=== PATIENT | female | born 1960 | race American Indian/Alaskan Native ===

== ENCOUNTER 2016-12-03 15:55 | Emergency (ER) | payer BC, OTHER ==
[~2016-12-03] VITALS: Ht 152.4 cm; Wt 90.7 kg
[2016-12-03] MEDS ORDERED: LISINOPRIL20 MG PO (16:10)
[2016-12-03] MEDS ORDERED: LANTUS SOL100 UNIT/1 SUB-Q (16:11)
[2016-12-03] MEDS ORDERED: NOVOLOG FL100 UNIT/1 SUB-Q (16:11)
[2016-12-03] MEDS ORDERED: DOXYCYCLINE HY100 MG PO (16:31)
== END 2016-12-03 16:45 | disposition home or self-care (01) ==
LOC: ED 15:55
DX: S81.811A Laceration without foreign body, right lower leg, initial encounter (principal); E11.9 Type 2 diabetes mellitus without complications; I10 Essential (primary) hypertension; W26.8XXA Contact with other sharp object(s), not elsewhere classified, initial encounter; Z90.49 Acquired absence of other specified parts of digestive tract; Z79.899 Other long term (current) drug therapy; Z79.4 Long term (current) use of insulin
CPT/HCPCS: 99283

== ENCOUNTER 2019-05-26 15:51 | Emergency (ER) | payer BC, OTHER ==
[~2019-05-26] VITALS: Ht 152.4 cm; Wt 90.7 kg
[~2019-05-26 15:51] MED LIST: DOXYCYCLINE HY100 MG PO; LANTUS SOL100 UNIT/1 SUB-Q; LISINOPRIL20 MG PO; NOVOLOG FL100 UNIT/1 SUB-Q
== END 2019-05-26 17:07 | disposition home or self-care (01) ==
LOC: ED 15:51
DX: M25.562 Pain in left knee (principal); E11.9 Type 2 diabetes mellitus without complications; Z79.899 Other long term (current) drug therapy
CPT/HCPCS: 73560; 85379; 99283-25

== ENCOUNTER 2019-09-25 07:05 | Day surgery (SDC) | payer BC, OTHER ==
[~2019-09-25] VITALS: Ht 152.4 cm; Wt 90.7 kg
--- NOTE | 2019-09-25 08:24 | NUR ---
PT IS ALERT, ORIENTED AND SITTING UP IN BED. HAD JUST A MOMENT WITH PT, GAVE GRETING AND INTRO, DR COLINDRES CAME IN AND OR STAFF WAITING IN [place]. EXTENDED A BLESSING
[2019-09-25] MEDS ORDERED: HYDROCODON-ACE1 EA11 PO (09:09)
[2019-09-25] MEDS ORDERED: DICLOFENAC SODI75 MG PO (09:09)
--- NOTE | 2019-09-25 09:21 | NUR ---
09/25/19 0921 Ashley Meyer 0881 PT ARRIVED IN PACU NON RESPONSIIVE TO NOXIOUS STIMULI WITH OPA IN PLACE. 0900 BLOOD SUGAR 131 ON ARRIVAL. 0911 PT RESPONSIVE. OPA REMOVED. L KNEE ELEVATED AND ICE PACK PLACED. 919 PT VISITING WITH RN. NO C/O'S.
--- NOTE | 2019-09-25 09:51 | OR ---
[facility] [address] [place], [place] [address] Signed DATE OF OPERATION: 09/25/2019 SURGEON: Troin Shook MD PREOPERATIVE DIAGNOSIS: Medial meniscus tear, left knee. POSTOPERATIVE DIAGNOSIS: Medial meniscus tear, left knee. PROCEDURE PERFORMED: Left knee arthroscopy with partial medial meniscectomy. PRINTER FLOOR COVERING ASSISTANT: None. ANESTHESIA: General. BLOOD LOSS: Minimal. BRIEF HISTORY: Aparna is a 59-year-old female with pain and locking in her knee. MRI is consistent with a large posteromedial meniscus tear. Risks and benefits of operative treatment were discussed with her and she elected to proceed. DESCRIPTION OF PROCEDURE: Once consent was obtained, she was taken to the operating room. After adequate anesthesia, she was placed on the operating room table. The left leg was placed in well-padded leg arriaza. The right was placed in well-padded leg arriaza with a flexed abducted position. The portal sites were preinjected with 0.25% Marcaine under an alcohol prep. The leg was then prepped and draped in a standard sterile fashion. Standard inferolateral and superolateral portals were made and the scope was introduced in the knee. ARTHROSCOPIC FINDINGS: There was significant synovitis throughout the superior and medial aspects of the knee. The patella showed minimal chondromalacia and tracked well. Medial and lateral gutters were clear. ACL and PCL were intact. Lateral compartment was intact. Medial Electronically Signed By: TORIN SHOOK MD 09/25/19 0951 PATIENT NAME: APARNA ASHER OPERATIVE REPORT DATE OF : 62 REPORT #: [id number] PHYSICIAN: TORIN SHOOK MD PCP: FERN GOLDMAN REPORT IS CONFIDENTIAL AND NOT TO BE RELEASED WITHOUT AUTHORIZATION [facility] [address] [place], [place] [address] Signed compartment showed diffuse grade 2 to grade 3 chondromalacia on the medial aspect of the medial femoral condyle. The meniscus showed a complex tear extending from the posterior root around to the mid body. There were several unstable flaps. DESCRIPTION OF PROCEDURE: Standard inferomedial portal was established after localization using a spinal needle. The straight and curved biters were then used to trim the meniscus tear back to a stable rim. This was then smoothed using shaver and all debris was evacuated. Good transition was obtained. The scope was withdrawn. Portals were closed with 3-0 nylon. The knee was injected with 60 mg Toradol at the end of the case. The wounds were dressed with Adaptic, ABD, and Jonathan wrap. She tolerated the procedure well. All sponge, needle, and instrument counts were correct. Torin Shook MD BA/ROSIE /[id number] Copies: ~ Electronically Signed By: TORIN SHOOK MD 09/25/19 0951 PATIENT NAME: APARNA ASHER OPERATIVE REPORT DATE OF : 62 REPORT #: [id number] PHYSICIAN: TORIN SHOOK MD PCP: FERN GOLDMAN REPORT IS CONFIDENTIAL AND NOT TO BE RELEASED WITHOUT AUTHORIZATION
--- NOTE | 2019-09-25 10:56 | NUR ---
REVIEWD DISCHARGE INSTRUCTIONS WITH PT AT BEDSIDE AND GAVE ORIGIONAL RX TO PT. AMBULATES TO BATHROOM. STEADY ON FEET WITH NO ASSISTANCE NEEDED. DRESSING REMAINS CDI. DENIES NAUSEA. REPORTS 3/10 SURGICAL SITE PAIN. AMBULATES TO WHEEL CHAIR AND DISCHARGED WITH PAPERWORK.
== END 2019-09-25 11:00 | disposition home or self-care (01) ==
LOC: DS 07:05
PROVIDERS: Specialist
PROC: 0SBD4ZZ Excision of Left Knee Joint, Percutaneous Endoscopic Approach (ICD-10-PCS; principal; 2019-09-25 08:30)
DX: S83.232A Complex tear of medial meniscus, current injury, left knee, initial encounter (principal); M65.862 Other synovitis and tenosynovitis, left lower leg; M22.42 Chondromalacia patellae, left knee; I10 Essential (primary) hypertension; G47.33 Obstructive sleep apnea (adult) (pediatric); E11.9 Type 2 diabetes mellitus without complications; Z79.899 Other long term (current) drug therapy; Z79.4 Long term (current) use of insulin; Z90.49 Acquired absence of other specified parts of digestive tract
CPT/HCPCS: 01400; A9270; J0690; J1100; J1885; J2001; J2405; J2704; J3010

== ENCOUNTER 2020-05-14 07:10 | Day surgery (SDC) | payer BC, OTHER ==
[~2020-05-14 07:10] MED LIST changes: +DICLOFENAC SODI75 MG PO; +HYDROCODON-ACE1 EA11 PO
[2020-05-14] MEDS ORDERED: COZAAR50 MG PO (07:30)
[2020-05-14] MEDS ORDERED: ZYRTEC10 M3 PO (07:31)
--- NOTE | 2020-05-14 09:08 | NUR ---
05/14/20 0908 Luis Tejada [facility] [place] 145. DENIES NAUSEA OR PAIN. REORIENTED TO TIME AND SITUATION. FALLS ASLEEP EASILY.
--- NOTE | 2020-05-14 10:45 | OR ---
[facility] [address] [place], [place] [address] Signed DATE OF OPERATION: 05/14/2020 SURGEON: Andrew Rodriguez MD PREOPERATIVE DIAGNOSIS: Screening. POSTOPERATIVE DIAGNOSES: 1. 8 mm polyp at 22 cm. 2. 5 mm polyp at proximal transverse colon. 3. 5 mm polyp at 65 cm. 4. 5 mm polyp at 28 cm. 5. Minimal transverse colon diverticulosis. 6. Minimal internal hemorrhoids. PROCEDURE: Colonoscopy with hot biopsy. ESTIMATED BLOOD LOSS: None. INDICATIONS: Aparna is a 59-year-old female, asked to see me for followup colonoscopy. She had a negative colonoscopy back in [address] Mukherjee. She explained that her father actually had cancer, this started in the liver. She said he was diabetic and drink heavily. There is no family history of colon cancer or polyps. She has no lower GI complaints. In the office, I gave Aparna a pamphlet on colonoscopy. We looked at that together along with the risks including, but not limited to gas bloating, crampy abdominal pain, bleeding, perforation requiring surgery, and missed diagnosis. We also discussed the need for IV conscious sedation. She had expressed understanding and wished to proceed. PROCEDURE NOTE: Aparna was taken into our endoscopy suite and placed in the left lateral decubitus position. She was given 6 mg of Versed and 150 mcg of fentanyl to cover the case. A digital rectal exam was performed and this was unremarkable. The adult colonoscope was introduced and advanced all around into the cecum under direct visualization of camera without difficulty. Her prep was quite good. We could easily see the appendiceal orifice and the ileocecal valve. The scope was slowly withdrawn. We took pictures throughout for photodocumentation. The above-mentioned polyps were easily removed and Electronically Signed By: ANDREW RODRIGUEZ MD 05/14/20 1045 PATIENT NAME: APARNA ASHER OPERATIVE REPORT DATE OF : 62 REPORT #: [id number] PHYSICIAN: ANDREW RODRIGUEZ MD PCP: FERN GOLDMAN REPORT IS CONFIDENTIAL AND NOT TO BE RELEASED WITHOUT AUTHORIZATION [facility] [address] [place], [place] [address] Signed destroyed completely with the hot biopsy forceps. We saw a few diverticula in the transverse colon. Once in the rectum, the scope had been retroflexed and she does have just very minimal internal hemorrhoid tissue. After this, the gas was suctioned out and colonoscope was removed. Aparna tolerated the procedure quite well. RECOMMENDATIONS: I will see Aparna back in my office in 7 to 14 days to review her results. Andrew Rodriguez MD ALB/SUNSHINEL /[id number] cc: FERN GOLDMAN, Nurse Practitioner Copies: ~ Electronically Signed By: ANDREW RODRIGUEZ MD 05/14/20 1045 PATIENT NAME: APARNA ASHER OPERATIVE REPORT DATE OF : 62 REPORT #: [id number] PHYSICIAN: ANDREW RODRIGUEZ MD PCP: FERN GOLDMAN REPORT IS CONFIDENTIAL AND NOT TO BE RELEASED WITHOUT AUTHORIZATION
--- NOTE | 2020-05-18 15:27 | PATH ---
[facility] [address] [place], [place] [address] Signed SPECIMEN(S): A COLON POLYP AT 22 CM SPECIMEN(S): B TRANSVERSE POLYP SPECIMEN(S): C COLON POLYP AT 65 CM SPECIMEN(S): D COLON POLYP AT 28 CM SPECIMEN SOURCE: A. COLON POLYP AT 22 CM B. TRANSVERSE POLYP C. COLON POLYP AT 65 CM D. COLON POLYP AT 28 CM CLINICAL HISTORY: Screening. MICROSCOPIC DESCRIPTION: Histologic sections of all submitted blocks are examined by light microscopy. These findings, together with the gross examination, support the pathologic diagnosis. FINAL PATHOLOGIC DIAGNOSIS: A. Colon polyp at 22 cm, polypectomy: - Fragments of tubular adenoma. - Negative for high-grade dysplasia or malignancy. B. Transverse polyp, polypectomy: - Fragments of tubular adenoma with cautery artefactual change. C. Colon polyp at 65 cm, polypectomy: - Tubular adenoma. - Negative for high-grade dysplasia or malignancy. D. Colon polyp at 28 cm, polypectomy: - Tubular adenoma. - Negative for high-grade dysplasia or malignancy. DF:bg:[id number] GROSS DESCRIPTION: Four specimens are received in four containers, labeled "Aparna Asher." A. The specimen, labeled "Aparna Asher, #1," and designated on the requisition "colon polyp at 22 cm," is received in formalin and consists of three darling soft tissue fragment(s) that measure 0.3-0.4 cm in greatest dimension. The specimen is entirely submitted in cassette (A1). B. The specimen, labeled "Aparna Asher, #2," and designated on the requisition "transverse polyp," is received in formalin and consists of four darling soft tissue fragment(s) that measure 0.1-0.4 cm PATIENT NAME: APARNA ASHER PATHOLOGY DATE OF : 62 REPORT #: [id number] PHYSICIAN: VONDA PATHOLOGY PCP: FERN GOLDMAN REPORT IS CONFIDENTIAL AND NOT TO BE RELEASED WITHOUT AUTHORIZATION [facility] [address] [place], [place] [address] Signed in greatest dimension. The specimen is entirely submitted in cassette (B1). C. The specimen, labeled "Aparna Asher, #3," and designated on the requisition "colon polyp at 65 cm," is received in formalin and consists of one darling soft tissue fragment that measures 0.3 cm in greatest dimension. The specimen is entirely submitted in cassette (C1). D. The specimen, labeled "Aparna Asher, #4," and designated on the requisition "colon polyp at 28 cm," is received in formalin and consists of one darling soft tissue fragment that measures 0.3 cm in greatest dimension. The specimen is entirely submitted in cassette (D1). FB (under the direct supervision of a pathologist) The Gross Description was prepared using a voice recognition system. The report was reviewed for accuracy; however, sound-alike word errors, addition and/or deletions may occur. If there is any question about this report, please contact Client Services. PERFORMING LABORATORY: The technical component was performed by [facility], [address] [place] [id number] (Tool And Die Maker/Designer: Starla Upton MD; CLIA# [id number]). Professional interpretation was performed by [facility], [address] [place] [id number] (Tool And Die Maker/Designer: Starla Upton MD; CLIA# [id number]). Diagnostician: Jeffrey Villegas DO Pathologist Electronically Signed 05/18/2020 Copies: ~ PATIENT NAME: APARNA ASHER PATHOLOGY DATE OF : 62 REPORT #: [id number] PHYSICIAN: VONDA RAMIREZ PCP: FERN GOLDMAN REPORT IS CONFIDENTIAL AND NOT TO BE RELEASED WITHOUT AUTHORIZATION
== END 2020-05-14 09:39 | disposition home or self-care (01) ==
LOC: DS 07:10 → OPS 07:10 → DS 08:15 → OPS 08:15
PROVIDERS: ATTEND Colon & Rectal Surgery
PROC: 0DBE8ZX Excision of Large Intestine, Via Natural or Artificial Opening Endoscopic, Diagnostic (ICD-10-PCS; 2020-05-14)
PROC: 0DBL8ZX Excision of Transverse Colon, Via Natural or Artificial Opening Endoscopic, Diagnostic (ICD-10-PCS; principal; 2020-05-14 08:15)
DX: Z12.11 Encounter for screening for malignant neoplasm of colon (principal); D12.3 Benign neoplasm of transverse colon; K57.30 Diverticulosis of large intestine without perforation or abscess without bleeding; K64.8 Other hemorrhoids; I10 Essential (primary) hypertension; E11.9 Type 2 diabetes mellitus without complications; G47.00 Insomnia, unspecified; G47.30 Sleep apnea, unspecified; E55.9 Vitamin D deficiency, unspecified; E66.9 Obesity, unspecified; Z90.49 Acquired absence of other specified parts of digestive tract; Z79.4 Long term (current) use of insulin; Z79.899 Other long term (current) drug therapy; Z79.52 Long term (current) use of systemic steroids; Z88.8 Allergy status to other drugs, medicaments and biological substances; Z88.2 Allergy status to sulfonamides; Z68.38 Body mass index [BMI] 38.0-38.9, adult
CPT/HCPCS: 99153; G0500; J2250; J3010; J7121